=== PATIENT | female | born 1945 | race Caucasian/White ===

== ENCOUNTER 2025-02-23 17:10 | Inpatient (IN) | payer MEDICARE ==
[~2025-02-23] VITALS: Ht 154.9 cm; Wt 46.3 kg
[2025-02-23 17:55] VITALS: BP 147/72
[2025-02-23] MEDS ORDERED: DIVALPROEX SOD250 MG PO (18:15)
[2025-02-23] MEDS ORDERED: RIVASTIGMINE T4.5 M1 PO (18:16)
[2025-02-23] MEDS ORDERED: HYDROXYZINE PAM50 MG PO (18:17)
[2025-02-23] MEDS ORDERED: HYDROXYZINE PAM25 M1 PO (18:17)
[2025-02-23] MEDS ORDERED: PROMETHAZINE25 M1 PO (18:18)
[2025-02-23] MEDS ORDERED: VOLTAREN ARTHRI20 GM T (18:19)
[2025-02-23 19:14] LABS: BASO % 0.5 % (0.0-1.0); EOS % 0.3 % (1.0-4.0); HEMATOCRIT 40.8 % (37.0-47.0); MEAN CELL VOLUME 93.2 fl (81.0-99.0); MEAN CORPUSCULAR HGB 30.4 pg (27.0-31.0); MEAN CORPUSCULAR HGB CONC 32.6 g/dl (33.0-37.0); MEAN PLATELET VOLUME 9.6 fl (9.6-12.3); MONO # 0.5 10*3/uL (0.1-1.0); MONO % 6.4 % (3.0-9.0); NEUT % 68.5 % (47.0-73.0); PLATELET COUNT AUTOMATED 261 10*3/uL (130-400); RED BLOOD COUNT 4.38 10*6/uL (4.10-5.10); RED CELL DISTRI WIDTH 12.4 % (0-14.5); WHITE BLOOD COUNT 7.4 10*3/uL (4.8-10.8)
[2025-02-23 19:36] LABS: ALKALINE PHOSPHATASE 86 U/L (46-116); BUN 26 mg/dl (9-23); CHLORIDE 107 mmol/L (98-107); CPK 149 U/L (34-171); ETHYL ALCOHOL < 3.0 mg/dl (<3); POTASSIUM 3.1 mmol/L (3.4-5.1); SGPT/ALT 15 U/L (5-49); TOTAL PROTEIN 7.4 gm/dL (6.0-8.0)
[2025-02-23] MEDS ORDERED: POTASSIUM CHLORIDE 20 MEQ TAB PO ONE (20:05)
[2025-02-23 21:50] VITALS: BP 129/68
[2025-02-23] MEDS ORDERED: ACETAMINOPHEN 325 MG TAB PO PRN (22:20)
[2025-02-23] MEDS ORDERED: MG-AL HYDROXIDE/SIMETICONE 30 ML UDC PO PRN (22:20)
[2025-02-23] MEDS ORDERED: Magnesium Hydroxide 30 ML UDC PO PRN (22:20)
[2025-02-23] MEDS ORDERED: Menthol/Zinc Oxide 4 GM THIN T PRN (22:25)
[2025-02-23] MEDS ORDERED: Synthroid,Levo50 MCG PO (22:52)
[2025-02-23] MEDS ORDERED: TEARS LUBRICANT15 ML OU (22:58)
[2025-02-23] MEDS ORDERED: MIDODRINE HCL2.5 MG PO (23:01)
[2025-02-23] MEDS ORDERED: Ondansetron4 MG PO (23:03)
[2025-02-23] MEDS ORDERED: LORazepam 1 MG TAB PO PRN (23:25)
[2025-02-23] MEDS ORDERED: Ziprasidone Mesylate 20 MG VIAL IM PRN (23:30)
[2025-02-23] MEDS ORDERED: Water, Sterile 10 ML VIAL IM PRN (23:30)
[2025-02-23] MEDS ORDERED: Ondansetron Hydrochloride 4 MG TAB PO PRN (23:40)
[2025-02-23] MEDS ORDERED: DICLOFENAC SODIUM 100 GM TUBE T PRN (23:40)
[2025-02-24] MEDS ORDERED: DIVALPROEX ER 500 MG TAB PO SCH (06:00)
[2025-02-24] MEDS ORDERED: Levothyroxine Sodium 50 MCG TAB PO SCH (06:00)
[2025-02-24 06:59] LABS: BUN 22 mg/dl (9-23); CHLORIDE 110 mmol/L (98-107); POTASSIUM 3.4 mmol/L (3.4-5.1)
[2025-02-24 07:49] LABS: VITAMIN D, 25-HYDROXY 18.3 ng/mL (30-100)
[2025-02-24 08:00] VITALS: BP 122/55
[2025-02-24] MEDS ORDERED: Rivastigmine Tartrate 1.5 MG CAP PO SCH (09:00)
[2025-02-24] MEDS ORDERED: Memantine Hydrochloride 5 MG TAB PO SCH (09:35)
[2025-02-24] MEDS ORDERED: Hypromellose 25 ML BOT OPH PRN (15:35)
[2025-02-24 20:00] VITALS: BP 113/57
[2025-02-24] MEDS ORDERED: Mirtazapine 15 MG TAB PO SCH (21:00)
[2025-02-24] MEDS ORDERED: Prazosin Hydrochloride 1 MG CAP PO SCH (21:00)
[2025-02-25] MEDS ORDERED: Levothyroxine Sodium 25 MCG TAB PO SCH (06:00)
[2025-02-25 08:00] VITALS: BP 119/51
[2025-02-25] MEDS ORDERED: REMERON15 M2 PO (08:41)
[2025-02-25] MEDS ORDERED: hydrOXYzine hydrochloride 50 MG/ML VIAL IM PRN (08:45)
[2025-02-25] MEDS ORDERED: Cholecalciferol 2,000 UNIT TABLET (50 MCG) PO SCH (09:00)
[2025-02-25 20:00] VITALS: BP 110/53
[2025-02-26 08:00] VITALS: BP 110/56
[2025-02-26] MEDS ORDERED: risperiDONE 0.5 MG ODT OGT SCH (16:00)
[2025-02-26 20:00] VITALS: BP 116/58
[2025-02-26] MEDS ORDERED: Memantine Hydrochloride 5 MG TAB PO SCH (21:00)
[2025-02-27 08:00] VITALS: BP 110/48
[2025-02-27] MEDS ORDERED: Rivastigmine Tartrate 3 MG CAP PO SCH (09:00)
[2025-02-27 20:00] VITALS: BP 126/53
[2025-02-28 08:00] VITALS: BP 114/50
[2025-02-28 20:00] VITALS: BP 126/68
[2025-02-28] MEDS ORDERED: Memantine Hydrochloride 10 MG TAB PO SCH (21:00)
[2025-02-28] MEDS ORDERED: Prazosin Hydrochloride 1 MG CAP PO SCH (21:00)
[2025-03-01 08:00] VITALS: BP 102/62
[2025-03-01 14:53] LABS: BILIRUBIN Negative (Negative); BLOOD Negative (Negative); CLARITY Cloudy (Clear); COLOR Yellow (Yellow); GLUCOSE Negative (Negative); KETONE 4+ (Negative); LEUKO ESTERASE Trace (Negative); NITRITE Negative (Negative); PH 5.5 (4.5-8.0); SPECIFIC GRAVITY 1.025 (1.001-1.030)
[2025-03-01 15:00] LABS: URINE AMPHETAMINES Negative (1000ng/ml); URINE BARBITURATES Negative (200ng/ml); URINE BENZODIAZEPINES Negative (200ng/ml); URINE CANNABINOIDS (THC) Negative (50ng/ml); URINE COCAINE Negative (300ng/ml); URINE METHADONE Negative (300ng/ml); URINE OPIATES Negative (300ng/ml); URINE PHENCYCLIDINE Negative (25ng/ml)
[2025-03-01 15:13] LABS: BACTERIA 1+; MUCOUS 3+
[2025-03-01 15:14] LABS: CALCIUM OXALATE CRYSTALS 1+
[2025-03-01 20:00] VITALS: BP 112/68
[2025-03-02 06:32] LABS: BASO % 0.3 % (0.0-1.0); EOS % 0.3 % (1.0-4.0); HEMATOCRIT 34.7 % (37.0-47.0); MEAN CELL VOLUME 90.6 fl (81.0-99.0); MEAN CORPUSCULAR HGB 30.5 pg (27.0-31.0); MEAN CORPUSCULAR HGB CONC 33.7 g/dl (33.0-37.0); MEAN PLATELET VOLUME 10.8 fl (9.6-12.3); MONO # 0.6 10*3/uL (0.1-1.0); MONO % 7.8 % (3.0-9.0); NEUT % 66.9 % (47.0-73.0); PLATELET COUNT AUTOMATED 204 10*3/uL (130-400); RED BLOOD COUNT 3.83 10*6/uL (4.10-5.10); RED CELL DISTRI WIDTH 12.3 % (0-14.5); WHITE BLOOD COUNT 7.5 10*3/uL (4.8-10.8)
[2025-03-02 06:42] LABS: ALKALINE PHOSPHATASE 73 U/L (46-116); BUN 17 mg/dl (9-23); CHLORIDE 106 mmol/L (98-107); POTASSIUM 3.3 mmol/L (3.4-5.1); SGPT/ALT 11 U/L (5-49)
[2025-03-02 08:23] VITALS: BP 109/50
[2025-03-02 20:00] VITALS: BP 121/52
[2025-03-03 08:02] VITALS: BP 130/63
[2025-03-03] MEDS ORDERED: POTASSIUM CHLORIDE 20 MEQ TAB PO ONE (14:35)
[2025-03-03 20:00] VITALS: BP 116/57
[2025-03-04 08:00] VITALS: BP 117/59
[2025-03-04 20:00] VITALS: BP 104/51
[2025-03-05 08:00] VITALS: BP 112/59
[2025-03-05 20:00] VITALS: BP 99/64
[2025-03-05] MEDS ORDERED: FOAM BANDAGE 5X5 T ONE (21:44)
[2025-03-06 01:00] VITALS: BP 117/49
[2025-03-06 08:09] VITALS: BP 108/60
[2025-03-06 20:00] VITALS: BP 126/76
[2025-03-07 08:00] VITALS: BP 113/57
[2025-03-07] MEDS ORDERED: MINIPRESS1 M1 PO (09:42)
[2025-03-07] MEDS ORDERED: VITAMIN D350 MCG PO (09:42)
[2025-03-07] MEDS ORDERED: MIRTAZAPINE15 M2 PO (09:42)
[2025-03-07] MEDS ORDERED: RIVASTIGMINE TAR3 M1 PO (09:42)
[2025-03-07] MEDS ORDERED: MEMANTINE HCL10 MG PO (09:42)
== END 2025-03-07 14:05 | DRG 885 ==
LOC: ED 17:10 → 3N 20:10 → EDHOLD 20:10 → 3N 20:16
PROVIDERS: Counselor Professional; Nurse Practitioner Family; Student in an Organized Health Care Education/Training Program; ADMIT Psychiatry & Neurology Psychiatry; ATTEND Psychiatry & Neurology Psychiatry
PROC: GZHZZZZ Group Psychotherapy (ICD-10-PCS; principal; 2025-02-24)
PROC: GZ51ZZZ Individual Psychotherapy, Behavioral (ICD-10-PCS; 2025-02-24)
DX: F33.3 Major depressive disorder, recurrent, severe with psychotic symptoms (principal); E44.1 Mild protein-calorie malnutrition; Z68.1 Body mass index [BMI] 19.9 or less, adult; E87.6 Hypokalemia; R73.9 Hyperglycemia, unspecified; G30.9 Alzheimer's disease, unspecified; F41.9 Anxiety disorder, unspecified; Z20.822 Contact with and (suspected) exposure to COVID-19; E83.52 Hypercalcemia; E03.9 Hypothyroidism, unspecified; F43.10 Post-traumatic stress disorder, unspecified; F02.80 Dementia in other diseases classified elsewhere, unspecified severity, without behavioral disturbance, psychotic disturbance, mood disturbance, and anxiety; Z88.8 Allergy status to other drugs, medicaments and biological substances; Z79.899 Other long term (current) drug therapy; Z98.42 Cataract extraction status, left eye